=== PATIENT | female | born 1945 | race Caucasian/White ===

== ENCOUNTER 2022-10-15 10:40 | Inpatient (IN) ==
[2022-10-15 11:34] LABS: POC Calcium, Ionized 1.17 (1.16-1.32); POC Creatinine 3.1 (0.6-1.2); POC Potassium 4.3 (3.3-5.1)
[2022-10-15 12:27] LABS: Albumin 3.8 gm/dL (3.2-5.2); Calcium 9.2 mg/dL (8.6-10.4)
[2022-10-15] MEDS ORDERED: ENALAPRILAT 1.25 MG/ML VIAL IV ONE (13:12)
[2022-10-15] MEDS ORDERED: 0.9 % SODIUM CHLORIDE 1,000 ML IV ONE (13:12)
--- NOTE | 2022-10-15 14:22 | Emergency Department Note ---
HPI General Chief complaint: Blood Pressure Problem Stated complaint: High blood pressure Time Seen by Provider: 10/15/22 11:09 Source: patient Mode of arrival: ambulatory Limitations: no limitations History of Present Illness HPI Narrative: 76-year-old female with h/o non-obstructive CAD with NSTEMI in [place] while on vacation last year presents for elevated blood pressure and generalized fatigue that she states has been going on for about 2 months. During her admission for NSTEMI she had a heart cath that showed "no culprit stenosis, no high-grade atherosclerotic stenosis spasm or thrombus. She was noted to have 40 to 50% and 30 to 40% stenosis of the proximal to mid LAD. The LCx and RCA were free of st enosis." No stents were placed and she was medically managed with a higher dose statin, beta renay and aspirin. An echocardiogram showed diastolic dysfunction, no hemodynamically significant valvular disease, and an EF of 55- 60%. She was encouraged to come in today by family because she had a headache and noted her systolic blood pressure to be 180's. An EKG shows normal sinus rhythm with rate of 60 bpm, and no abnormal ST segment changes to suggest ischemia. Related Data Home Medications Medication Instructions Recorded Confirmed pediatric multivitamin no.76 1 tab PO QDAY 04/16/19 11/11/21 (Flintstones Complete chewable tablet) aspirin 81 mg tablet,delayed 81 mg PO QDAY 03/25/21 11/11/21 release (Adult Low Dose Aspirin) Previous Rx's Medication Instructions Recorded terbinafine HCl 1 % topical cream 1 applic topical QDAY #15 grams 08/14/21 (Antifungal (terbinafine)) atorvastatin 40 mg tablet 40 mg PO QDAY #90 tabs 07/14/22 metoprolol succinate 25 mg 25 mg PO QDAY #90 tabs 07/14/22 tablet,extended release 24 hr Allergies Allergy/AdvReac Type Severity Reaction Status Date / Time Sulfa (Sulfonamide Allergy Severe Generalized Verified 05/17/22 07:55 Antibiotics) Rash tamsulosin AdvReac Intermediate Other Verified 05/17/22 07:55 Review of Systems ROS ROS Narrative: Narrative: All systems ED: reviewed and negative except as stated. [facility] Narrative Patient History Narrative: Narrative: Medical/Surgical/Family History All Active Problems (Updated 10/15/22 @ 15:49 by Edith Martinez PA-C) ANAMARIA (acute kidney injury) (Acute) Chest pain, rule out acute myocardial infarction (Acute) Tinea corporis (Acute) History of non-ST elevation myocardial infarction (NSTEMI) (Acute) Medicare annual wellness visit, subsequent (Acute) Chest pain (Acute) CAD (coronary artery disease) (Chronic) Recurrent UTI (Acute) Low back pain (Acute) Rotator cuff tear, left (Chronic) Left carpal tunnel syndrome (Chronic) Left anterior shoulder pain (Acute) Weakness of left upper extremity (Chronic) Left upper arm pain (Chronic) Urine retention (Acute) Microhematuria (Chronic) Visual disturbance (Chronic) Osteoarthrosis, generalized, 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 Torres Degenerative arthritis Elevated ferritin Flank pain Flank pain Ganglion Left palm third flexor tendon Hyperlipidemia Hypersensitivity reaction (08/26/14) Joint effusion, knee (08/02/13) Knee pain LFT elevation Distant history Low back pain Medicare annual wellness visit, subsequent Oliguria Osteoarthritis of spine Osteoarthrosis, generalized, hand (01/25/13) Osteopenia Normal DEXA scan in 2018 Continue vitamin D supplement and weightbearing exercise Consider repeat DEXA in 2 to 3 years Sinusitis, acute Sprain (07/21/13) Left knee Sprain and strain (07/21/13) of ankle; other Left ankle foot sprain Urinary tract infection Vesicles (08/26/14) Redness and a few vesicles right forehead Visual disturbance Right Eye Surgical History History of cholecystectomy History of colonoscopy (04/18/18) 04/16/13 2 hyperplastic polyps. 04/18/18 normal. 7-year follow-up. Dr. Shields. History of knee surgery Left History of tubal ligation S/P skin biopsy 08/04/2009: Right Deltoid Lesion: Lichenoid actinic keratosis/ 07/06/2007: Right Upper Arm Lesion: Benign lichenoid keratosis with associated pigment incontinence, Pas stain negative for fungal organisms Status post total abdominal hysterectomy and bilateral salpingo-oophorectomy Family History Maternal Aunt Malignant neoplasm of breast Father Cerebrovascular accident (CVA) Unknown Essential hypertension Malignant Melanoma of Skin Daughter Hypothyroidism Mother , in MVA Motor vehicle accident Brother , 2 brothers , 1 in his 30's, other in his 50's Acute myocardial infarction Other Diabetes Heart attack Hypertension Social History Smoking Status: Never smoker Alcohol Intake Frequency: does not drink Substance Use: does not use Exam Narrative Narrative: General: AOx3, NAD, nontoxic appearing. Pleasant and conversant. HEENT: PERRL, EOMI, normocephalic. Moist mucous membranes. Normal facies and normal dentition. Chest: Symmetric, no pain to palpation Respiratory: Lungs clear to auscultation bilaterally. No respiratory distress. Unlabored breathing. Heart: Regular rate and rhythm, no murmurs/clicks/rubs. Abdomen: Non-tender, Non distended, normal bowel tones. No organomegaly. Extremities: Warm and well perfused. No edema. DP 2+ bilaterally. No venous stasis. Neuro: No focal deficits. Cranial nerves II-XII grossly normal. Skin: Warm dry, no rashes or lesions, no cyanosis. Psych: Normal mood and affect Heme/Lymph: No abnormal bruising General Limitations: no limitations Course Course Course Narrative: 76-year-old female with CAD presents for exertional symptoms and headache with poorly controlled hypertension Reevaluation(s) Reevaluation #1: Rule out chest pain, obtain EKG, serial troponin Obtain basic labs Reevaluation #2: Point of care chemistry with a creatinine of 3.1 and a BUN of 30, recheck renal panel--> creatinine is 2.5, last normal creatinine was 05/17/2022 at 1.0. POC trop 0.02 Reevaluation #3: Give 1 L IV fluids Heart score 6 Repeat trop Additional Reevaluation(s): Repeat Trop is negative Consultations Consultation #1: Dr. Chapman, Cardiology at [facility] was contacted and he felt the patients ANAMARIA needed to be worked up first before provocative testing to r/o chest pain. He also felt the patient was likely ok for rapid f/u with cardiology as outpatient. Vital Signs Vital signs: Vital Signs Temperature 96.3 F L 10/15/22 10:41 Pulse Rate 71 10/15/22 10:41 Respiratory Rate 18 10/15/22 10:41 Blood Pressure 186/88 10/15/22 10:41 Pulse Oximetry (%) 97 10/15/22 10:41 Oxygen Delivery Method Room Air 10/15/22 10:41 Temperature 96.3 F L 10/15/22 10:41 Pulse Rate 54 L 10/15/22 15:07 Respiratory Rate 16 10/15/22 14:35 Blood Pressure 176/65 10/15/22 15:07 Pulse Oximetry (%) 97 10/15/22 15:07 Oxygen Delivery Method Room Air 10/15/22 14:35 MDM MDM Narrative Medical decision making narrative: Acute kidney injury Chest pain rule out Patient has been ruled out for acute myocardial infarction with 2 negative serial troponins and a normal EKG. I spoke with Dr. Avalos, hospitalist, for admission for her ANAMARIA. He would like me to obtain a chest x-ray and a BNP to rule out CHF as cause of her decreased kidney function. He has agreed to admission. Lab Data 10/15/22 11:07 Labs: Lab Results 10/15/22 10/15/22 10/15/22 Range/Units 11:07 11:18 11:31 POC Hct 30.0 L (36-48) POC Sodium 141 (133-145) Sodium 140 (133-145) mmol/L POC Potassium 4.3 (3.3-5.1) Potassium 4.3 (3.3-5.1) mmol/L POC Chloride 107 (96-108) Chloride 108 (96-108) mmol/L Carbon Dioxide 22 (22-30) mmol/L POC Total CO2 22.0 (22-30) Anion Gap 10.0 (8.0-16.0) POC BUN 30 H (6-20) BUN 30 H (8-23) mg/dL Creatinine 2.5 H (0.6-1.1) mg/dL POC Creatinine 3.1 H (0.6-1.2) GFR Calculation 18 Glucose 96 (70-105) mg/dL POC Glucose 101 (70-105) Calcium 9.2 (8.6-10.4) mg/dL POC WB Ioniz Calcium 1.17 (1.16-1.32) Phosphorus 4.0 (2.5-4.5) mg/dL Albumin 3.8 (3.2-5.2) gm/dL POC Troponin I < 0.02 (0.00-0.08) 10/15/22 Range/Units 14:23 POC Hct (36-48) POC Sodium (133-145) Sodium (133-145) mmol/L POC Potassium (3.3-5.1) Potassium (3.3-5.1) mmol/L POC Chloride (96-108) Chloride (96-108) mmol/L Carbon Dioxide (22-30) mmol/L POC Total CO2 (22-30) Anion Gap (8.0-16.0) POC BUN (6-20) BUN (8-23) mg/dL Creatinine (0.6-1.1) mg/dL POC Creatinine (0.6-1.2) GFR Calculation Glucose (70-105) mg/dL POC Glucose (70-105) Calcium (8.6-10.4) mg/dL POC WB Ioniz Calcium (1.16-1.32) Phosphorus (2.5-4.5) mg/dL Albumin (3.2-5.2) gm/dL POC Troponin I < 0.02 (0.00-0.08) Discharge Plan Patient/Caregiver Discharge Instructions Pt seen by LINE INSTALLATION SUPERVISOR/PA only: Yes Clinical Impression: ANAMARIA (acute kidney injury), Chest pain, rule out acute myocardial infarction Patient Disposition: Xfer As Inpt ([facility]) Condition: Good Follow up with: Cb Pollack DO [Primary Care Provider] - Prescriptions: No Action metoprolol succinate 25 mg tablet extended release 24 hr 25 mg PO QDAY Qty: 90 3RF atorvastatin 40 mg tablet 40 mg PO QDAY Qty: 90 3RF Flintstones Complete tablet,chewable 1 tab PO QDAY aspirin [Adult Low Dose Aspirin] 81 mg tablet,delayed release (DR/EC) 81 mg PO QDAY terbinafine HCl [Antifungal (terbinafine)] 1 % cream 1 applic topical QDAY Qty: 15 0RF Rx Instructions: Apply to umbilicus once daily for 1 to 4 weeks.
--- NOTE | 2022-10-15 15:14 | Internal Med History&Physical ---
HPI History of Present Illness Patient information: Note initiated : 10/15/22 at 3:12 pm Service Date, if different from initiated Date: [] Patient: Caro Jason 76 y/o F admitted on for High blood pressure. Chief Complaint: [] History of present illness: Ms. Jason is a 76 year old Female with a history of coronary artery disease diagnosed in 2020 when the patient had an NSTEMI. At that time, the patient had an angiogram which showed nonobstructing atherosclerosis of 40 to 50% and 30 to 40% in the proximal LAD with an associated IFR of 0.94. The patient was not deemed to be a candidate for PCI by interventional cardiology, cardiology recommended medical management and the patient was started on aspirin, a beta- renay and atorvastatin. The patient now presents to the emergency department for progressively worsening weakness and what she describes as "heaviness". The patient does describe exertional chest discomfort however says that has been present since 2020 and stable. The patient says that she has been having diff iculty performing activities of daily living, she describes having to rest multiple times while doing house chores. The patient went to her dentist where she was found to have a right lower molar infection, she says it is an abscess that her dentist feels will require a root canal. While at her dentist, the patient did have her blood pressure checked and it was markedly elevated. The patient then went home and purchased a blood pressure monitor and her blood pressure continued to be elevated at home. At that time she did decide to come to the emergency department for further evaluation. In the emergency department, the patient was noted to have elevated blood pressure heart rate in the 50s to 60s and otherwise stable vitals. EKG did not show any ischemic changes, troponin was normal x2. A renal function panel showed a creatinine level of 2.5, significantly higher than the patient's last creatinine level of 1.0. Hospital medicine was asked to admit the patient for further evaluation. Upon [id number] ultrasound examination, patient was noted to have a distended urine filled bladder and bilateral moderate to severe hydronephrosis. Review of systems Constitutional: no fever, positive for fatigue Eyes: no vision changes or pain Cardiovascular: Positive for exertional chest discomfort, no palpitations Respiratory: no cough or dyspnea Gastrointestinal: no abdominal pain, no nausea, vomiting, or diarrhea Genitourinary: Positive for urine incontinence. Musculoskeletal: no arthralgia or myalgia Integumentary: no skin lesion or wound Neurological: no focal weakness or numbness Psychiatric: no anxiety or depression Physical exam Head: Atraumatic, normal inspection. Eyes: normal appearance, no scleral icterus. Neck: full ROM Respiratory: no respiratory distress. Cardiovascular: normal rate and rhythm, S1, S2. GI/Abdominal: soft, nontender, no guarding. Extremities: full range of motion, nontender. Neurological: CN II-XII intact, intact motor, intact sensation. Psychiatric: normal mood. Skin: warm, normal color PFSH PFSH All Active Problems (Updated 10/15/22 @ 15:49 by Edith Martinez PA-C) ANAMARIA (acute kidney injury) (Acute) Chest pain, rule out acute myocardial infarction (Acute) Tinea corporis (Acute) History of non-ST elevation myocardial infarction (NSTEMI) (Acute) Medicare annual wellness visit, subsequent (Acute) Chest pain (Acute) CAD (coronary artery disease) (Chronic) Recurrent UTI (Acute) Low back pain (Acute) Rotator cuff tear, left (Chronic) Left carpal tunnel syndrome (Chronic) Left anterior shoulder pain (Acute) Weakness of left upper extremity (Chronic) Left upper arm pain (Chronic) Urine retention (Acute) Microhematuria (Chronic) Visual disturbance (Chronic) Osteoarthrosis, generalized, 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 Torres Degenerative arthritis Elevated ferritin Flank pain Flank pain Ganglion Left palm third flexor tendon Hyperlipidemia Hypersensitivity reaction (08/26/14) Joint effusion, knee (08/02/13) Knee pain LFT elevation Distant history Low back pain Medicare annual wellness visit, subsequent Oliguria Osteoarthritis of spine Osteoarthrosis, generalized, hand (01/25/13) Osteopenia Normal DEXA scan in 2018 Continue vitamin D supplement and weightbearing exercise Consider repeat DEXA in 2 to 3 years Sinusitis, acute Sprain (07/21/13) Left knee Sprain and strain (07/21/13) of ankle; other Left ankle foot sprain Urinary tract infection Vesicles (08/26/14) Redness and a few vesicles right forehead Visual disturbance Right Eye Surgical History History of cholecystectomy History of colonoscopy (04/18/18) 04/16/13 2 hyperplastic polyps. 04/18/18 normal. 7-year follow-up. Dr. Shields. History of knee surgery Left History of tubal ligation S/P skin biopsy 08/04/2009: Right Deltoid Lesion: Lichenoid actinic keratosis/ 07/06/2007: Right Upper Arm Lesion: Benign lichenoid keratosis with associated pigment incontinence, Pas stain negative for fungal organisms Status post total abdominal hysterectomy and bilateral salpingo-oophorectomy Family History Maternal Aunt Malignant neoplasm of breast Father Cerebrovascular accident (CVA) Unknown Essential hypertension Malignant Melanoma of Skin Daughter Hypothyroidism Mother , in MVA Motor vehicle accident Brother , 2 brothers , 1 in his 30's, other in his 50's Acute myocardial infarction Other Diabetes Heart attack Hypertension Social History household members: alone marital status: other: 2 children smoking status: Never smoker alcohol intake frequency: does not drink substance use type: does not use MEDS/ALLERGIES Home Medications and Allergies Home Medications Medication Instructions Recorded Confirmed Type pediatric multivitamin no.76 1 tab PO QDAY 04/16/19 11/11/21 History (Flintstones Complete chewable tablet) aspirin 81 mg tablet,delayed 81 mg PO QDAY 03/25/21 11/11/21 History release (Adult Low Dose Aspirin) terbinafine HCl 1 % topical cream 1 applic topical QDAY #15 grams 08/14/21 11/11/21 Rx (Antifungal (terbinafine)) atorvastatin 40 mg tablet 40 mg PO QDAY #90 tabs 07/14/22 Rx metoprolol succinate 25 mg 25 mg PO QDAY #90 tabs 07/14/22 Rx tablet,extended release 24 hr Allergies Allergy/AdvReac Type Severity Reaction Status Date / Time Sulfa (Sulfonamide Allergy Severe Generalized Verified 05/17/22 07:55 Antibiotics) Rash tamsulosin AdvReac Intermediate Other Verified 05/17/22 07:55 EXAM Constitutional Vitals: Temp Pulse Resp BP Pulse Ox O2 Del Method 96.3 F L 54 L 16 176/65 97 Room Air 10/15/22 10:41 10/15/22 15:07 10/15/22 14:35 10/15/22 15:07 10/15/22 15:07 10/15/22 14:35 DATA Data Completed and Pending Labs: Labs from last 24 hours 10/15/22 10/15/22 10/15/22 14:23 14:23 11:31 POC Hct 30.0 L POC Sodium 141 Sodium POC Potassium 4.3 Potassium POC Chloride 107 Chloride Carbon Dioxide POC Total CO2 22.0 Anion Gap POC BUN 30 H BUN Creatinine POC Creatinine 3.1 H GFR Calculation Glucose POC Glucose 101 Calcium POC WB Ioniz Calcium 1.17 Phosphorus NT-Pro-B Natriuret Pep Pending Albumin POC Troponin I < 0.02 10/15/22 10/15/22 11:18 11:07 POC Hct POC Sodium Sodium 140 POC Potassium Potassium 4.3 POC Chloride Chloride 108 Carbon Dioxide 22 POC Total CO2 Anion Gap 10.0 POC BUN BUN 30 H Creatinine 2.5 H POC Creatinine GFR Calculation 18 Glucose 96 POC Glucose Calcium 9.2 POC WB Ioniz Calcium Phosphorus 4.0 NT-Pro-B Natriuret Pep Albumin 3.8 POC Troponin I < 0.02 A/P Narrative A/P Narrative: Assessment: 76 year old female with a history of nonobstructive CAD admitted for acute kidney injury after presenting to the ED for hypertension and several months of progressively worsening generalized weakness and fatigue. Initial physical examination and [id number] ultrasound examination are suggest a bladder outlet obstruction resulting in bilateral hydronephrosis as the most likely cause of the patient's renal failure. #Renal failure probably secondary to obstructive nephropathy #Hypertensive urgency probably secondary to renal failure #Generalized weakness and fatigue #History of CAD with stable angina Plan -CT abdomen pelvis without contrast for further evaluation of probable bladder outlet obstruction. -Bladder scan for postvoid residual. -If CT scan is concerning for a bladder outlet obstruction, consult urology. -Additional work-up includes urinalysis for ANAMARIA work-up, chest xray PA and lateral, transthoracic echocardiogram to evaluate cardiac function, BNP, CBC, LFTs, iron studies, TSH, CRP, UDS. -Start Norvasc 5 mg daily, prn IV hydralazine for hypertension. -personnel monitor. -Home medications reconciliation, continue important medications, hold potentially nephrotoxic medications. -Regular diet. -Consider nephrology consult. -DVT ppx: Heparin SQ. Time Spent With Patient Time: Total time spent is greater than 50% in coordination of care (as documented) at patient's floor/unit and/or counseling patient:
[2022-10-15] MEDS ORDERED: amLODIPine 5 MG TABLET PO SCH (16:19)
[2022-10-15] MEDS ORDERED: ACETAMINOPHEN 325 MG TABLET PO PRN (16:19)
[2022-10-15] MEDS ORDERED: ONDANSETRON 4 MG/2 ML VIAL IV PRN (16:19)
[2022-10-15] MEDS ORDERED: 0.9 % SODIUM CHLORIDE 1,000 ML IV SCH (16:19)
[2022-10-15] MEDS ORDERED: hydrALAZINE 20 MG/ML VIAL IV PRN (16:19)
[2022-10-15 16:38] LABS: Appearance,Urine CLEAR (Clear); Bilirubin,Urine Negative (Negative); Color,Urine STRAW; Culture Indicated,Urine No; Glucose,Urine (UA) Negative (Negative); Ketones,Urine Negative (Negative); Leukocyte Esterase,Urine Negative /uL (Negative); Mucus,Urine FEW /hpf; Nitrate,Urine Negative (Negative); Protein,Urine Negative (Negative); Specific Gravity,Urine 1.005 (1.000-1.035); Urine Blood Negative (Negative); Urine RBC 1 /hpf (0-3); Urine Squamous Epithelial Cell 1 /hpf (0-4); Urine Transitional Epi Cells < 1 /hpf (0-2); Urine WBC < 1 /hpf (0-4); Urobilinogen,Urine Negative
--- NOTE | 2022-10-15 16:43 | Internal Med History&Physical ---
HPI History of Present Illness Patient information: Note initiated : 10/15/22 at 4:43 pm Service Date, if different from initiated Date: [] Patient: Caro Jason 76 y/o F admitted on 10/15/22 for High blood pressure. Chief Complaint: [] History of present illness: Ms. Jason is a 76 year old F [facility] PF[facility] All Active Problems (Updated 10/15/22 @ 15:49 by Edith Martinez PA-C) ANAMARIA (acute kidney injury) (Acute) Chest pain, rule out acute myocardial infarction (Acute) Tinea corporis (Acute) History of non-ST elevation myocardial infarction (NSTEMI) (Acute) Medicare annual wellness visit, subsequent (Acute) Chest pain (Acute) CAD (coronary artery disease) (Chronic) Recurrent UTI (Acute) Low back pain (Acute) Rotator cuff tear, left (Chronic) Left carpal tunnel syndrome (Chronic) Left anterior shoulder pain (Acute) Weakness of left upper extremity (Chronic) Left upper arm pain (Chronic) Urine retention (Acute) Microhematuria (Chronic) Visual disturbance (Chronic) Osteoarthrosis, generalized, 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 Torres Degenerative arthritis Elevated ferritin Flank pain Flank pain Ganglion Left palm third flexor tendon Hyperlipidemia Hypersensitivity reaction (08/26/14) Joint effusion, knee (08/02/13) Knee pain LFT elevation Distant history Low back pain Medicare annual wellness visit, subsequent Oliguria Osteoarthritis of spine Osteoarthrosis, generalized, hand (01/25/13) Osteopenia Normal DEXA scan in 2018 Continue vitamin D supplement and weightbearing exercise Consider repeat DEXA in 2 to 3 years Sinusitis, acute Sprain (07/21/13) Left knee Sprain and strain (07/21/13) of ankle; other Left ankle foot sprain Urinary tract infection Vesicles (08/26/14) Redness and a few vesicles right forehead Visual disturbance Right Eye Surgical History History of cholecystectomy History of colonoscopy (04/18/18) 04/16/13 2 hyperplastic polyps. 04/18/18 normal. 7-year follow-up. Dr. Shields. History of knee surgery Left History of tubal ligation S/P skin biopsy 08/04/2009: Right Deltoid Lesion: Lichenoid actinic keratosis/ 07/06/2007: Right Upper Arm Lesion: Benign lichenoid keratosis with associated pigment incontinence, Pas stain negative for fungal organisms Status post total abdominal hysterectomy and bilateral salpingo-oophorectomy Family History Maternal Aunt Malignant neoplasm of breast Father Cerebrovascular accident (CVA) Unknown Essential hypertension Malignant Melanoma of Skin Daughter Hypothyroidism Mother , in MVA Motor vehicle accident Brother , 2 brothers , 1 in his 30's, other in his 50's Acute myocardial infarction Other Diabetes Heart attack Hypertension Social History household members: alone marital status: other: 2 children smoking status: Never smoker alcohol intake frequency: does not drink substance use type: does not use MEDS/ALLERGIES Home Medications and Allergies Home Medications Medication Instructions Recorded Confirmed Type pediatric multivitamin no.76 1 tab PO QDAY 04/16/19 11/11/21 History (Flintstones Complete chewable tablet) aspirin 81 mg tablet,delayed 81 mg PO QDAY 03/25/21 11/11/21 History release (Adult Low Dose Aspirin) terbinafine HCl 1 % topical cream 1 applic topical QDAY #15 grams 08/14/21 Rx (Antifungal (terbinafine)) atorvastatin 40 mg tablet 40 mg PO QDAY #90 tabs 07/14/22 Rx metoprolol succinate 25 mg 25 mg PO QDAY #90 tabs 07/14/22 Rx tablet,extended release 24 hr Allergies Allergy/AdvReac Type Severity Reaction Status Date / Time Sulfa (Sulfonamide Allergy Severe Generalized Verified 05/17/22 07:55 Antibiotics) Rash tamsulosin AdvReac Intermediate Other Verified 05/17/22 07:55 EXAM Constitutional Vitals: Temp Pulse Resp BP Pulse Ox O2 Del Method 97.3 F 61 16 178/68 99 Room Air 10/15/22 16:16 10/15/22 16:16 10/15/22 16:16 10/15/22 16:16 10/15/22 16:16 10/15/22 16:16 DATA Data Completed and Pending Labs: Labs from last 24 hours 10/15/22 10/15/22 10/15/22 15:56 15:56 14:24 POC Hct POC Sodium Sodium Pending POC Potassium Potassium Pending POC Chloride Chloride Pending Carbon Dioxide Pending POC Total CO2 Anion Gap Pending POC BUN BUN Pending Creatinine Pending POC Creatinine GFR Calculation Pending Glucose Pending POC Glucose Uric Acid Pending Calcium Pending POC WB Ioniz Calcium Phosphorus Pending Magnesium Pending Iron Pending TIBC Pending Unsat Iron Binding Pending Transferrin % Sat Pending Ferritin Pending Total Bilirubin Pending Direct Bilirubin Pending GGT Pending AST Pending ALT Pending Alkaline Phosphatase Pending Lactate Dehydrogenase Pending C-Reactive Protein Pending NT-Pro-B Natriuret Pep Total Protein Pending Albumin Pending Globulin Pending Albumin/Globulin Ratio Pending Triglycerides Pending TSH Pending Urine Color Straw Urine Appearance Clear Urine pH 5.0 Ur Specific [place] 1.005 Urine Protein Negative Urine Glucose (UA) Negative Urine Ketones Negative Urine Occult Blood Negative Urine Nitrate Negative Urine Bilirubin Negative Urine Urobilinogen Negative Ur Leukocyte Esterase Negative Urine RBC 1 Urine WBC < 1 Ur Squamous Epith Cells 1 Ur Transition Epith Cell < 1 Urine Bacteria None Urine Mucus Few A Ur Culture Indicated? No Urine Opiates Screen Pending Ur Opiates Confirm Pending Ur Oxycodone Screen Pending U Oxycod/Oxymor Confirm Pending Urine Methadone Screen Pending Ur Methadone Confirm Pending Ur Barbiturates Screen Pending Ur Barbiturate Confirm Pending Ur Phencyclidine Scrn Pending Urine PCP Confirm Pending Ur Amphetamines Screen Pending U Amphetamines Confirm Pending U Benzodiazepines Scrn Pending Ur Benzodiazepine, Qnt Pending Urine Cocaine Screen Pending Urine Cocaine Confirm Pending U Cannabinoids Confirm Pending U Marijuana (THC) Screen Pending POC Troponin I 10/15/22 10/15/22 10/15/22 14:23 14:23 11:31 POC Hct 30.0 L POC Sodium 141 Sodium POC Potassium 4.3 Potassium POC Chloride 107 Chloride Carbon Dioxide POC Total CO2 22.0 Anion Gap POC BUN 30 H BUN Creatinine POC Creatinine 3.1 H GFR Calculation Glucose POC Glucose 101 Uric Acid Calcium POC WB Ioniz Calcium 1.17 Phosphorus Magnesium Iron TIBC Unsat Iron Binding Transferrin % Sat Ferritin Total Bilirubin Direct Bilirubin GGT AST ALT Alkaline Phosphatase Lactate Dehydrogenase C-Reactive Protein NT-Pro-B Natriuret Pep 691.9 H Total Protein Albumin Globulin Albumin/Globulin Ratio Triglycerides TSH Urine Color Urine Appearance Urine pH Ur Specific [place] Urine Protein Urine Glucose (UA) Urine Ketones Urine Occult Blood Urine Nitrate Urine Bilirubin Urine Urobilinogen Ur Leukocyte Esterase Urine RBC Urine WBC Ur Squamous Epith Cells Ur Transition Epith Cell Urine Bacteria Urine Mucus Ur Culture Indicated? Urine Opiates Screen Ur Opiates Confirm Ur Oxycodone Screen U Oxycod/Oxymor Confirm Urine Methadone Screen Ur Methadone Confirm Ur Barbiturates Screen Ur Barbiturate Confirm Ur Phencyclidine Scrn Urine PCP Confirm Ur Amphetamines Screen U Amphetamines Confirm U Benzodiazepines Scrn Ur Benzodiazepine, Qnt Urine Cocaine Screen Urine Cocaine Confirm U Cannabinoids Confirm U Marijuana (THC) Screen POC Troponin I < 0.02 10/15/22 10/15/22 11:18 11:07 POC Hct POC Sodium Sodium 140 POC Potassium Potassium 4.3 POC Chloride Chloride 108 Carbon Dioxide 22 POC Total CO2 Anion Gap 10.0 POC BUN BUN 30 H Creatinine 2.5 H POC Creatinine GFR Calculation 18 Glucose 96 POC Glucose Uric Acid Calcium 9.2 POC WB Ioniz Calcium Phosphorus 4.0 Magnesium Iron TIBC Unsat Iron Binding Transferrin % Sat Ferritin Total Bilirubin Direct Bilirubin GGT AST ALT Alkaline Phosphatase Lactate Dehydrogenase C-Reactive Protein NT-Pro-B Natriuret Pep Total Protein Albumin 3.8 Globulin Albumin/Globulin Ratio Triglycerides TSH Urine Color Urine Appearance Urine pH Ur Specific [place] Urine Protein Urine Glucose (UA) Urine Ketones Urine Occult Blood Urine Nitrate Urine Bilirubin Urine Urobilinogen Ur Leukocyte Esterase Urine RBC Urine WBC Ur Squamous Epith Cells Ur Transition Epith Cell Urine Bacteria Urine Mucus Ur Culture Indicated? Urine Opiates Screen Ur Opiates Confirm Ur Oxycodone Screen U Oxycod/Oxymor Confirm Urine Methadone Screen Ur Methadone Confirm Ur Barbiturates Screen Ur Barbiturate Confirm Ur Phencyclidine Scrn Urine PCP Confirm Ur Amphetamines Screen U Amphetamines Confirm U Benzodiazepines Scrn Ur Benzodiazepine, Qnt Urine Cocaine Screen Urine Cocaine Confirm U Cannabinoids Confirm U Marijuana (THC) Screen POC Troponin I < 0.02 A/P Time Spent With Patient Time: Total time spent is greater than 50% in coordination of care (as documented) at patient's floor/unit and/or counseling patient:
[2022-10-15 16:49] LABS: Amphetamine Screen,Urine None detected; Barbiturate Screen,Urine None detected; Benzodiazepines Screen,Urine None detected; Cannabinoid Screen,Urine None detected; Cocaine Screen,Urine None detected; Opiate Screen,Urine None detected; Oxycodone, Urine Screen None detected; Phencyclidine Screen,Urine None detected
[2022-10-15 16:51] LABS: Ferritin 456.7 ng/mL (30.0-400.0)
[2022-10-15 16:53] LABS: ALT/SGPT 21 U/L (<40); AST/SGOT 26 U/L (<32); Albumin 3.7 gm/dL (3.2-5.2); Albumin/Globulin Ratio 1.2 (1.0-2.3); Alkaline Phosphatase 101 U/L (39-117); Bilirubin,Direct < 0.2 mg/dL (0-0.3); Bilirubin,Total 0.3 mg/dL (0.1-1.0); Blood Urea Nitrogen 28 mg/dL (8-23); C-Reactive Protein < 0.30 mg/dL (0.03-0.80); Calcium 8.7 mg/dL (8.6-10.4); Carbon Dioxide 18 mmol/L (22-30); Chloride 105 mmol/L (96-108); Globulin 3.2 gm/dL (2.2-3.7); Glomerular Filtration Rate 18; Glucose 75 mg/dL (70-105); Iron 52 ug/dL (37-145); Lactate Dehydrogenase 251 U/L (135-225); Phosphorous 4.4 mg/dL (2.5-4.5); TIBC Calculation 258 ug/dl (228-428); Transferrin % Saturation 20 % (15-50); Triglycerides 86 mg/dL (<150); Uric Acid 5.2 mg/dL (2.5-8.0)
[2022-10-15 16:54] LABS: Thyroid Stimulating Hormone 3.92 uIU/mL (0.27-5.01)
--- NOTE | 2022-10-15 17:25 | Cat Scan Report ---
History: Urinary tract obstruction TECHNIQUE: The abdomen was imaged without contrast in axial plane at 2.5 mm intervals from above the diaphragm through the symphysis pubis. Sagittal and coronal reformats were created. The radiation exposure was limited using dose reduction technology. FINDINGS:6 there is mild parenchymal scarring in the inferior segment lingula and right middle lobe. No pleural effusion is present. Evaluation the abdominal organs without contrast is somewhat limited. The liver and spleen are normal in size and homogeneous. There is a surgical clip along the posterior border of the right lobe of the liver, adjacent to the diaphragm. This may have migrated from a prior surgical procedure. There is no surrounding inflammation. The gallbladder is been removed. The bile ducts are normal caliber. No abnormality is detected in the pancreas. The adrenals are normal and symmetric. There is severe bilateral hydronephrosis. No kidney stone is present. Both ureters are abnormally dilated. Urinary bladder is very over distended. The wall is smooth and there is no apparent bladder mass. There are no stones within the bladder. Uterus and ovaries have been removed. No pelvic mass or pelvic floor lesion are identified to causing bladder outlet obstruction. The bowel pattern is normal. There is a moderate amount stool in the large intestine but no evidence of bowel obstruction. No ascites or adenopathy are present. Moderate amount of calcified plaque is present in the distal aorta and iliac arteries. Bone windows reveal mild arthritis in the facets of the L4-5 and L5-S1 levels and in the right sacroiliac joint. IMPRESSION: Bladder outlet obstruction of undetermined etiology. This is causing severe bilateral hydronephrosis. Dr. Avalos was called with the report Interpreted and Authenticated by: Mauro Beck 10/15/22
--- NOTE | 2022-10-15 17:31 | Urology Consult Note ---
HPI Date of Consult Consult Date: 10/15/22 Requesting physician: Casey Avalos Primary Care Provider: Cb Pollack DO Consult Narrative Chief complaint: Acute renal failure secondary to bladder outlet obstruction Reason for consult: Acute renal failure secondary to bladder outlet obstruction History of present illness: Caro is a 76-year-old woman who presented to our emergency department today due to hypertension and a headache. There was worried that the patient might be having a cardiac event as she has a history of nonobstructive coronary artery disease with an NSTEMI last year. On work-up her serum creatinine was found to be 3.1. On May 17, 2022 her serum creatinine was 1. Noncontrast CT scan of the abdomen and pelvis was obtained. I personally reviewed the films that showed massive bladder distention with bilateral hydronephrosis and ureterectasis to the level of the bladder. There are no stones on the imaging. There is significant tortuosity of the ureters bilaterally. The patient was previously followed by my office. She last saw Priscilla Fong on July 04, 2017 so she is not currently a patient. It appears that she has a history of incomplete emptying of bladder with prior postvoid residuals under 2 00 cc. She was doing double voiding. She also apparently had a history of microscopic hematuria associated with pyuria. She was using topical estrogen cream. Postvoid residual at her last visit on July 04, 2017 was 190 cc. There was no blood in her urine at that last visit. Urology consultation was requested. She reports that over the last few months she has had more urine leakage. She has not had any pain or infection. She has noted becoming more and more fatigued. After admission a Panda catheter was placed and 1800 mL of urine were drained. This morning she reports that she feels fine. 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) Visual disturbance (Chronic) Microhematuria (Chronic) Urine retention (Acute) Left upper arm pain (Chronic) Weakness of left upper extremity (Chronic) Left anterior shoulder pain (Acute) Left carpal tunnel syndrome (Chronic) Rotator cuff tear, left (Chronic) Low back pain (Acute) Recurrent UTI (Acute) CAD (coronary artery disease) (Chronic) Chest pain (Acute) Medicare annual wellness visit, subsequent (Acute) History of non-ST elevation myocardial infarction (NSTEMI) (Acute) Tinea corporis (Acute) ANAMARIA (acute kidney injury) (Acute) Chest pain, rule out acute myocardial infarction (Acute) Medical History Actinic keratosis 2011 Right forehead Acute pharyngitis Acute sinusitis Allergic reaction Anosmia Back pain 2006 Right Bronchitis Chondromalacia of patella [address] Torres Degenerative arthritis Elevated ferritin Flank pain Flank pain Ganglion Left palm third flexor tendon Hyperlipidemia Hypersensitivity reaction (08/26/14) Joint effusion, knee (08/02/13) Knee pain LFT elevation Distant history Low back pain Medicare annual wellness visit, subsequent Oliguria Osteoarthritis of spine Osteoarthrosis, generalized, hand (01/25/13) Osteopenia Normal DEXA scan in 2018 Continue vitamin D supplement and weightbearing exercise Consider repeat DEXA in 2 to 3 years Sinusitis, acute Sprain (07/21/13) Left knee Sprain and strain (07/21/13) of ankle; other Left ankle foot sprain Urinary tract infection Vesicles (08/26/14) Redness and a few vesicles right forehead Visual disturbance Right Eye Surgical History History of cholecystectomy History of colonoscopy (04/18/18) 04/16/13 2 hyperplastic polyps. 04/18/18 normal. 7-year follow-up. Dr. Shields. History of knee surgery Left History of tubal ligation S/P skin biopsy 08/04/2009: Right Deltoid Lesion: Lichenoid actinic keratosis/ 07/06/2007: Right Upper Arm Lesion: Benign lichenoid keratosis with associated pigment incontinence, Pas stain negative for fungal organisms Status post total abdominal hysterectomy and bilateral salpingo-oophorectomy Family History Maternal Aunt Malignant neoplasm of breast Father Cerebrovascular accident (CVA) Unknown Essential hypertension Malignant Melanoma of Skin Daughter Hypothyroidism Mother , in MVA Motor vehicle accident Brother , 2 brothers , 1 in his 30's, other in his 50's Acute myocardial infarction Other Diabetes Heart attack Hypertension Social History household members: alone marital status: other: 2 children smoking status: Never smoker alcohol intake frequency: does not drink substance use type: does not use MEDS/ALLERGIES Home Medications and Allergies Home Medications Medication Instructions Recorded Confirmed Type aspirin 81 mg tablet,delayed 81 mg PO QDAY 03/25/21 10/15/22 History release (Adult Low Dose Aspirin) atorvastatin 40 mg tablet 40 mg PO QDAY #90 tabs 07/14/22 10/15/22 Rx metoprolol succinate 25 mg 25 mg PO QDAY #90 tabs 07/14/22 10/15/22 Rx tablet,extended release 24 hr Allergies Allergy/AdvReac Type Severity Reaction Status Date / Time Sulfa (Sulfonamide Allergy Severe Generalized Verified 05/17/22 07:55 Antibiotics) Rash tamsulosin AdvReac Intermediate Other Verified 05/17/22 07:55 Physical Examination Vital Signs Vital signs: Temp Pulse Resp BP Pulse Ox O2 Del Method 97.3 F 61 16 178/68 99 Room Air 10/15/22 16:16 10/15/22 16:16 10/15/22 16:16 10/15/22 16:16 10/15/22 16:16 10/15/22 16:16 General physical appearance General physical exam: well developed, well nourished, no distress and no pain ENT ENT exam: no hearing loss Head Head exam IM: Present atraumatic, normal inspection and normocephalic Neck Neck exam: trachea midline Cardiovascular Cardiovascular exam IM: Present normal rate and rhythm Respiratory Respiratory exam: normal respiratory effort and clear to auscultation Abdomen Abdomen: Present soft and non tender Genitourinary Genitourinary (Female): Present other (Panda catheter in place) Psychiatric Psychiatric: Present oriented to time, oriented to person, oriented to place and speech is normal Results Labs 10/16/22 05:00 Labs: Abnormal lab results 10/15/22 10/15/22 10/15/22 Range/Units 11:07 11:31 14:23 POC Hct 30.0 L (36-48) Carbon Dioxide (22-30) mmol/L POC BUN 30 H (6-20) BUN 30 H (8-23) mg/dL Creatinine 2.5 H (0.6-1.1) mg/dL POC Creatinine 3.1 H (0.6-1.2) Ferritin (30.0-400.0) ng/mL Lactate Dehydrogenase (135-225) U/L NT-Pro-B Natriuret Pep 691.9 H (<450.0) pg/mL Urine Mucus (None) /hpf 10/15/22 10/15/22 Range/Units 14:24 15:56 POC Hct (36-48) Carbon Dioxide 18 L (22-30) mmol/L POC BUN (6-20) BUN 28 H (8-23) mg/dL Creatinine 2.5 H (0.6-1.1) mg/dL POC Creatinine (0.6-1.2) Ferritin 456.7 H (30.0-400.0) ng/mL Lactate Dehydrogenase 251 H (135-225) U/L NT-Pro-B Natriuret Pep (<450.0) pg/mL Urine Mucus Few A (None) /[facility] Diabetes panel 10/15/22 10/15/22 Range/Units 11:07 14:24 Sodium 140 136 (133-145) mmol/L Potassium 4.3 4.4 (3.3-5.1) mmol/L Chloride 108 105 (96-108) mmol/L Carbon Dioxide 22 18 L (22-30) mmol/L BUN 30 H 28 H (8-23) mg/dL Creatinine 2.5 H 2.5 H (0.6-1.1) mg/dL Glucose 96 75 (70-105) mg/dL Calcium 9.2 8.7 (8.6-10.4) mg/dL AST 26 (<32) U/L ALT 21 (<40) U/L Alkaline Phosphatase 101 (39-117) U/L Total Protein 6.9 (5.9-8.4) gm/dL Albumin 3.8 3.7 (3.2-5.2) gm/dL Triglycerides 86 (<150) mg/dL Thyroid panel 10/15/22 Range/Units 14:24 TSH 3.92 (0.27-5.01) uIU/mL Calcium panel 10/15/22 10/15/22 Range/Units 11: 14:24 Calcium 9.2 8.7 (8.6-10.4) mg/dL Phosphorus 4.0 4.4 (2.5-4.5) mg/dL Albumin 3.8 3.7 (3.2-5.2) gm/dL Pituitary panel 10/15/22 10/15/22 Range/Units 11:07 14:24 Sodium 140 136 (133-145) mmol/L Potassium 4.3 4.4 (3.3-5.1) mmol/L Chloride 108 105 (96-108) mmol/L Carbon Dioxide 22 18 L (22-30) mmol/L BUN 30 H 28 H (8-23) mg/dL Creatinine 2.5 H 2.5 H (0.6-1.1) mg/dL Glucose 96 75 (70-105) mg/dL Calcium 9.2 8.7 (8.6-10.4) mg/dL TSH 3.92 (0.27-5.01) uIU/mL Adrenal panel 10/15/22 10/15/22 Range/Units 11:07 14:24 Sodium 140 136 (133-145) mmol/L Potassium 4.3 4.4 (3.3-5.1) mmol/L Chloride 108 105 (96-108) mmol/L Carbon Dioxide 22 18 L (22-30) mmol/L BUN 30 H 28 H (8-23) mg/dL Creatinine 2.5 H 2.5 H (0.6-1.1) mg/dL Glucose 96 75 (70-105) mg/dL Calcium 9.2 8.7 (8.6-10.4) mg/dL Total Bilirubin 0.3 (0.1-1.0) mg/dL AST 26 (<32) U/L ALT 21 (<40) U/L Alkaline Phosphatase 101 (39-117) U/L Total Protein 6.9 (5.9-8.4) gm/dL Albumin 3.8 3.7 (3.2-5.2) gm/dL All other labs normal. Imaging CT scan - abdomen: report reviewed and image reviewed CT scan - pelvis: report reviewed and image reviewed A/P Assessment and plan (1) Urine retention: Status: Acute (2) ANAMARIA (acute kidney injury): Status: Acute Plan Caro is a 76-year-old woman who presented to the emergency department yesterday with an acute kidney injury secondary to urinary retention of unknown duration. In May her serum creatinine was within normal limits. Yesterday was 2.4. Panda catheter was placed in almost 2 L of urine were drained. She has been experiencing an increase in urinary incontinence and fatigue and lethargy. She feels well this morning. She is exhibiting some signs of post obstructive diuresis. She is making copious amounts of urine. The urine in her bag this morning is clear and yellow. It is likely that she has a nonfunctioning, atonic bladder possibly secondary to a neurogenic bladder or long-term retention. Obstruction from mass is a less likely diagnosis. On CT it did not appear that she had a significant cystocele. We discussed leaving the Panda catheter in place. When she is stable for discharge she will go home with the Panda catheter in place. We will then see her in the office for Panda removal, cystoscopy, pelvic examination and teaching of clean intermittent catheterization. Time Spent With Patient Time: Total time spent is greater than 50% in coordination of care (as documented) at patient's floor/unit and/or counseling patient:
[2022-10-15] MEDS: HEPARIN 5,000 UNIT/ML VIAL SQ SCH (20:48)
[2022-10-15] MEDS: SENNOSIDES 1 TABLET PO SCH (20:50)
[2022-10-15] MEDS: 0.9 % SODIUM CHLORIDE 10 ML SYRINGE IV SCH (20:50)
[2022-10-16 06:50] LABS: ALT/SGPT 22 U/L (<40); AST/SGOT 27 U/L (<32); Albumin 3.6 gm/dL (3.2-5.2); Albumin/Globulin Ratio 1.2 (1.0-2.3); Alkaline Phosphatase 99 U/L (39-117); Bilirubin,Direct < 0.2 mg/dL (0-0.3); Bilirubin,Total 0.3 mg/dL (0.1-1.0); Blood Urea Nitrogen 28 mg/dL (8-23); Calcium 9.1 mg/dL (8.6-10.4); Carbon Dioxide 18 mmol/L (22-30); Chloride 107 mmol/L (96-108); Globulin 3.1 gm/dL (2.2-3.7); Glomerular Filtration Rate 19; Glucose 118 mg/dL (70-105); Lactate Dehydrogenase 284 U/L (135-225); Phosphorous 4.2 mg/dL (2.5-4.5); Triglycerides 69 mg/dL (<150); Uric Acid 5.1 mg/dL (2.5-8.0)
[2022-10-16] MEDS: 0.9 % SODIUM CHLORIDE 10 ML SYRINGE IV SCH ×3 (07:42→21:16)
[2022-10-16] MEDS: 0.45 % SODIUM CHLORIDE 1,000 ML IV SCH ×2 (07:42→17:48)
[2022-10-16] MEDS: HEPARIN 5,000 UNIT/ML VIAL SQ SCH ×2 (08:49→21:21)
--- NOTE | 2022-10-16 08:52 | EKG ---
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
--- NOTE | 2022-10-16 08:58 | XRay Report ---
HISTORY: Chest pain, hypertension FINDINGS: The lungs are clear. The heart, mediastinum, jaimie and pleura are normal. IMPRESSION: Normal chest. Interpreted and Authenticated by: Mauro Beck 10/16/22
--- NOTE | 2022-10-16 09:29 | Internal Med Progress Note ---
SUBJECTIVE Subjective Patient information: Note initiated : 10/16/22 at 9:24 am Service Date, if different from initiated Date: [] Patient: Caro Jason 76 y/o F admitted on 10/15/22 for High blood pressure. Chief Complaint: [] Interval history: Ms. Jason is a 76 year old Female with a history of coronary artery disease diagnosed in 2020 when the patient had an NSTEMI. At that time, the patient had an angiogram which showed nonobstructing atherosclerosis of 40 to 50% and 30 to 40% in the proximal LAD with an associated IFR of 0.94. The patient was not deemed to be a candidate for PCI by interventional cardiology, cardiology recom mended medical management and the patient was started on aspirin, a beta-renay and atorvastatin. The patient now presents to the emergency department for progressively worsening weakness and what she describes as "heaviness". The patient does describe exertional chest discomfort however says that has been present since 2020 and stable. The patient says that she has been having difficulty performing activities of daily living, she describes having to rest multiple times while doing house chores. The patient went to her dentist where she was found to have a right lower molar infection, she says it is an abscess that her dentist feels will require a root canal. While at her dentist, the patient did have her blood pressure checked and it was markedly elevated. The patient then went home and purchased a blood pressure monitor and her blood pressure continued to be elevated at home. At that time she did decide to come to the emergency department for further evaluation. In the emergency department, the patient was noted to have elevated blood pressure heart rate in the 50s to 60s and otherwise stable vitals. EKG did not show any ischemic changes, troponin was normal x2. A renal function panel showed a creatinine level of 2.5, significantly higher than the patient's last creatinine level of 1.0. Hospital medicine was asked to admit the patient for further evaluation. Upon [id number] ultrasound examination, patient was noted to have a distended urine filled bladder and bilateral moderate to severe hydronephrosis. 10/16 CT abdomen pelvis without contrast showed a distended bladder consistent with bladder outlet obstruction of uncertain etiology causing severe bilateral hydronephrosis. A Panda catheter was placed. Urology consulted for further evaluation. Renal function this morning modestly improved, the patient is having a significant amount of diuresis consistent with postobstructive diuresis. The patient started on IV fluid. Physical exam Head: Atraumatic, normal inspection. Eyes: normal appearance, no scleral icterus. Neck: full ROM Respiratory: no respiratory distress. Cardiovascular: normal rate and rhythm, S1, S2. GI/Abdominal: soft, nontender, no guarding. : Indwelling Panda catheter. Extremities: full range of motion, nontender. Neurological: CN II-XII intact, intact motor, intact sensation. Psychiatric: normal mood. Skin: warm, normal color Constitutional Vitals: Vital Signs Temp Pulse Resp BP Pulse Ox O2 Del Method 97.7 F 67 16 137/72 100 Room Air 10/16/22 07:35 10/16/22 07:35 10/16/22 07:35 10/16/22 07:35 10/16/22 07:35 10/16/22 07:35 Period Temp Pulse Resp BP Sys/Guajardo Pulse Ox O2 Del Method O2 Flow Rate Last 24 Hr 96.3 F-97.9 F 50-73 16-20 137-199/64-93 94-100 Room Air-Room Air Intake and Output 10/15/22 10/16/22 10/16/22 19:59 03:59 11:59 Intake Total 1000 800 Output Total 3800 1950 1050 Balance -2800 -1150 -1050 Weight 83.631 kg 86.364 kg Intake & Output: Intake & Output 10/15/22 10/16/22 10/16/22 19:59 03:59 11:59 Intake Total 1000 800 Output Total 3800 1950 1050 Balance -2800 -1150 -1050 Weight 83.631 kg 86.364 kg Intake: IV 1000 Sodium Chloride 0.9% 1,000 ml @ 1000 Wide Open IV [facility] Rx#: [id number] Oral 800 Output: Urine Catheter Amount 3600 1950 1050 Uretheral (Panda) 3600 Void Amount 200 Other: Meal Dinner Percent of Meal Consumed 100% Feeding Ability Independent Urine Appearance Clear Clear Small Blood Clots Uretheral (Panda) Clear Clear Urine Color Yellow [address] Pale Uretheral (Panda) Pale Pale Urine Odor Normal Normal Uretheral (Panda) Normal Stool Size Moderate Stool Color Brown Stool Consistency Soft Formed OBJ DATA Labs 10/16/22 05:00 Labs: Abnormal Lab Results 10/16/22 10/15/22 10/15/22 05:00 15:56 14:24 POC Hct Carbon Dioxide 18 L 18 L POC BUN BUN 28 H 28 H Creatinine 2.4 H 2.5 H POC Creatinine Glucose 118 H Ferritin 456.7 H Lactate Dehydrogenase 284 H 251 H NT-Pro-B Natriuret Pep Urine Mucus Few A 10/15/22 10/15/22 10/15/22 14:23 11:31 11:07 POC Hct 30.0 L Carbon Dioxide POC BUN 30 H BUN 30 H Creatinine 2.5 H POC Creatinine 3.1 H Glucose Ferritin Lactate Dehydrogenase NT-Pro-B Natriuret Pep 691.9 H Urine Mucus Meds: Medications Acetaminophen (Acetaminophen 325 Mg Tablet) 650 mg PO Q6HP PRN; Protocol PRN Reason: Per Pain Protocol/Fever > 101 Heparin Sodium (Porcine) (Heparin 5,000 Unit/Ml Vial) 5,000 unit SQ Q12 [facility] Last Admin: 10/16/22 08:49 Dose: 5,000 unit Hydralazine HCl (Hydralazine 20 Mg/Ml Vial) 20 mg IV Q4-6HP PRN PRN Reason: Hypertension Sodium Chloride (Sodium Chloride 0.45%) 1,000 mls @ 100 mls/hr IV .Q10H [facility] Last Admin: 10/16/22 07:42 Dose: 100 mls/hr Ondansetron HCl (Ondansetron 4 Mg/2 Ml Vial) 4 mg IV Q6HP PRN PRN Reason: Nausea And Vomiting Senna (Sennosides 1 Tablet) 2 tab PO HS [facility] Last Admin: 10/15/22 20:50 Dose: Not Given Sodium Chloride (0.9 % Sodium Chloride 10 Ml Syringe) 10 ml IV Q8 [facility] Last Admin: 10/16/22 07:42 Dose: 10 ml A/P Narrative A/P Narrative: Assessment: 76 year old female with a history of nonobstructive CAD, stable angina, hypertension admitted for renal failure secondary to obstructive nephropathy of uncertain cause. #Renal failure secondary to obstructive nephropathy #Postobstructive diuresis #Non-anion gap metabolic acidosis #Resolved hypertensive urgency #Generalized weakness and fatigue #History of CAD with stable angina Plan -Monitor urine output, continue Panda catheter. -IV half NS titrated to 75% urine output for now. -Follow renal function and electrolytes closely until postobstructive diuresis resolves. -Urology consulted. -Continue home aspirin, atorvastatin, metoprolol. -Regular diet. -Follow-up pending echocardiogram. -Consider nephrology consult depending on renal function trend. -DVT ppx: Heparin SQ. -CODE STATUS: Parts Representative Spent With Patient Time: Total time spent is greater than 50% in coordination of care (as documented) at patient's floor/unit and/or counseling patient: QUALITY VTE Deep Vein Thrombosis/Pulmonary Embolism Present on Admission: No
[2022-10-16 14:48] LABS: Albumin 3.5 gm/dL (3.2-5.2); Blood Urea Nitrogen 27 mg/dL (8-23); Calcium 8.5 mg/dL (8.6-10.4); Carbon Dioxide 22 mmol/L (22-30); Chloride 106 mmol/L (96-108); Glomerular Filtration Rate 22; Glucose 107 mg/dL (70-105)
[2022-10-16] MEDS: SENNOSIDES 1 TABLET PO SCH (21:21)
[2022-10-17] MEDS: 0.45 % SODIUM CHLORIDE 1,000 ML IV SCH ×3 (03:52→16:14)
[2022-10-17] MEDS: 0.9 % SODIUM CHLORIDE 10 ML SYRINGE IV SCH ×3 (04:26→20:42)
[2022-10-17 06:52] LABS: ALT/SGPT 21 U/L (<40); AST/SGOT 24 U/L (<32); Albumin 3.3 gm/dL (3.2-5.2); Albumin/Globulin Ratio 1.1 (1.0-2.3); Alkaline Phosphatase 96 U/L (39-117); Bilirubin,Direct < 0.2 mg/dL (0-0.3); Bilirubin,Total 0.2 mg/dL (0.1-1.0); Blood Urea Nitrogen 25 mg/dL (8-23); Calcium 8.5 mg/dL (8.6-10.4); Carbon Dioxide 18 mmol/L (22-30); Chloride 108 mmol/L (96-108); Glomerular Filtration Rate 23; Glucose 126 mg/dL (70-105); Lactate Dehydrogenase 209 U/L (135-225); Phosphorous 3.4 mg/dL (2.5-4.5); Triglycerides 64 mg/dL (<150); Uric Acid 4.2 mg/dL (2.5-8.0)
[2022-10-17] MEDS: HEPARIN 5,000 UNIT/ML VIAL SQ SCH ×2 (08:57→20:40)
[2022-10-17] MEDS: ASPIRIN 81 MG TAB.CHEW PO SCH (08:57)
[2022-10-17] MEDS: ATORVASTATIN 40 MG TABLET PO SCH (08:57)
[2022-10-17] MEDS: METOPROLOL SUCCINATE 25 MG TAB.XL.24H PO SCH (08:58)
--- NOTE | 2022-10-17 11:41 | Internal Med Progress Note ---
SUBJECTIVE Subjective Patient information: Note initiated : 10/17/22 at 11:39 am Service Date, if different from initiated Date: [] Patient: Caro Jason 76 y/o F admitted on 10/15/22 for High blood pressure. Chief Complaint: [] Interval history: Ms. Jason is a 76 year old Female with a history of coronary artery disease diagnosed in 2020 when the patient had an NSTEMI. At that time, the patient had an angiogram which showed nonobstructing atherosclerosis of 40 to 50% and 30 to 40% in the proximal LAD with an associated IFR of 0.94. The patient was not deemed to be a candidate for PCI by interventional cardiology, cardiology cornelia mmended medical management and the patient was started on aspirin, a beta- renay and atorvastatin. The patient now presents to the emergency department for progressively worsening weakness and what she describes as "heaviness". The patient does describe exertional chest discomfort however says that has been present since 2020 and stable. The patient says that she has been having difficulty performing activities of daily living, she describes having to rest multiple times while doing house chores. The patient went to her dentist where she was found to have a right lower molar infection, she says it is an abscess that her dentist feels will require a root canal. While at her dentist, the patient did have her blood pressure checked and it was markedly elevated. The patient then went home and purchased a blood pressure monitor and her blood pressure continued to be elevated at home. At that time she did decide to come to the emergency department for further evaluation. In the emergency department, the patient was noted to have elevated blood pressure heart rate in the 50s to 60s and otherwise stable vitals. EKG did not show any ischemic changes, troponin was normal x2. A renal function panel showed a creatinine level of 2.5, significantly higher than the patient's last creatinine level of 1.0. Hospital medicine was asked to admit the patient for further evaluation. Upon [id number] ultrasound examination, patient was noted to have a distended urine filled bladder and bilateral moderate to severe hydronephrosis. 10/16 CT abdomen pelvis without contrast showed a distended bladder consistent with bladder outlet obstruction of uncertain etiology causing severe bilateral hydronephrosis. A Panda catheter was placed. Urology consulted for further evaluation. Renal function this morning modestly improved, the patient is having a significant amount of diuresis consistent with postobstructive diuresis. The patient started on IV fluid. 8 Blood pressure elevated overnight, otherwise vitals have been stable. Renal function improving. Electrolytes stable this morning. Postobstructive diuresis has decreased, reduced IV fluid rate. Started Norvasc for elevated blood pressures. Canceled transthoracic echocardiogram as the patient's admission symptoms are improving now that the bladder outlet obstruction has been addressed. Physical exam Head: Atraumatic, normal inspection. Eyes: normal appearance, no scleral icterus. Neck: full ROM Respiratory: no respiratory distress. Cardiovascular: normal rate and rhythm, S1, S2. GI/Abdominal: soft, nontender, no guarding. : Indwelling Panda catheter. Extremities: full range of motion, nontender. Neurological: CN II-XII intact, intact motor, intact sensation. Psychiatric: normal mood. Skin: warm, normal color Constitutional Vitals: Vital Signs Temp Pulse Resp BP Pulse Ox O2 Del Method 97.7 F 71 16 170/72 97 Room Air 10/17/22 07:38 10/17/22 07:38 10/17/22 07:38 10/17/22 07:38 10/17/22 07:38 10/17/22 07:38 Period Temp Pulse Resp BP Sys/Guajardo Pulse Ox O2 Del Method O2 Flow Rate Last 24 Hr 97.5 F-98.1 F 60-74 16-18 142-174/63-72 95-97 Room Air-Room Air Intake and Output 10/16/22 10/17/22 10/17/22 19:59 03:59 11:59 Intake Total 1540 1000 240 Output Total 800 1850 1175 Balance 740 -850 -935 Weight 83.518 kg Intake & Output: Intake & Output 10/16/22 10/17/22 10/17/22 19:59 03:59 11:59 Intake Total 1540 1000 240 Output Total 800 1850 1175 Balance 740 -850 -935 Weight 83.518 kg Intake: IV 1000 1000 Sodium Chloride 0.45% 1,000 ml 1000 1000 @ 100 mls/hr IV .Q10H [facility] Rx#: [id number] Oral 240 240 GI Tube Flush 300 Output: Urine Catheter Amount 800 1850 1175 Other: Meal Dinner Breakfast Percent of Meal Consumed 100 100% Feeding Ability Independent Independent Urine Appearance Clear Clear Clear Uretheral (Panda) Clear Clear Urine Color Yellow Pale Yellow Pale Uretheral (Panda) Yellow Yellow Pale Urine Odor Normal Normal Stool Size Large Stool Color Brown Yellow Stool Consistency Soft Formed # Bowel Movements 1 OBJ DATA Labs 10/17/22 05:19 Labs: Abnormal Lab Results 10/17/22 10/16/22 10/16/22 05:19 13:56 05:00 POC Hct Carbon Dioxide 18 L 18 L POC BUN BUN 25 H 27 H 28 H Creatinine 2.0 H 2.1 H 2.4 H POC Creatinine Glucose 126 H 107 H 118 H Calcium 8.5 L 8.5 L Ferritin Lactate Dehydrogenase 284 H NT-Pro-B Natriuret Pep Urine Mucus 10/15/22 10/15/22 10/15/22 15:56 14:24 14:23 POC Hct Carbon Dioxide 18 L POC BUN BUN 28 H Creatinine 2.5 H POC Creatinine Glucose Calcium Ferritin 456.7 H Lactate Dehydrogenase 251 H NT-Pro-B Natriuret Pep 691.9 H Urine Mucus Few A 10/15/22 10/15/22 11:31 11:07 POC Hct 30.0 L Carbon Dioxide POC BUN 30 H BUN 30 H Creatinine 2.5 H POC Creatinine 3.1 H Glucose Calcium Ferritin Lactate Dehydrogenase NT-Pro-B Natriuret Pep Urine Mucus Meds: Medications Acetaminophen (Acetaminophen 325 Mg Tablet) 650 mg PO Q6HP PRN; Protocol PRN Reason: Per Pain Protocol/Fever > 101 Aspirin (Aspirin 81 Mg Tab.Chew) 81 mg PO DAILY [facility] Last Admin: 10/17/22 08:57 Dose: 81 mg Atorvastatin Calcium (Atorvastatin 40 Mg Tablet) 40 mg PO QDAY [facility] Last Admin: 10/17/22 08:57 Dose: 40 mg Heparin Sodium (Porcine) (Heparin 5,000 Unit/Ml Vial) 5,000 unit SQ Q12 [facility] Last Admin: 10/17/22 08:57 Dose: 5,000 unit Hydralazine HCl (Hydralazine 20 Mg/Ml Vial) 20 mg IV Q4-6HP PRN PRN Reason: Hypertension Sodium Chloride (Sodium Chloride 0.45%) 1,000 mls @ 50 mls/hr IV .Q20H [facility] Last Admin: 10/17/22 08:58 Dose: 50 mls/hr Metoprolol Succinate (Metoprolol Succinate 25 Mg Tab.Xl.24h) 25 mg PO QDAY [facility] Last Admin: 10/17/22 08:58 Dose: 25 mg Ondansetron HCl (Ondansetron 4 Mg/2 Ml Vial) 4 mg IV Q6HP PRN PRN Reason: Nausea And Vomiting Senna (Sennosides 1 Tablet) 2 tab PO HS [facility] Last Admin: 10/16/22 21:21 Dose: 2 tab Sodium Chloride (0.9 % Sodium Chloride 10 Ml Syringe) 10 ml IV Q8 [facility] Last Admin: 10/17/22 04:26 Dose: Not Given A/P Narrative A/P Narrative: Assessment: 76 year old female with a history of nonobstructive CAD, stable angina, hypertension admitted for renal failure secondary to obstructive nephropathy of uncertain cause. #Renal failure secondary to obstructive nephropathy #Postobstructive diuresis #Non-anion gap metabolic acidosis #Hypertension #Improved generalized weakness and fatigue #History of CAD with stable angina Plan -Monitor urine output, continue Panda catheter until urology post hospital follow-up. -IV half NS reduced to 50 mL/h. -Follow renal function and electrolytes closely until postobstructive diuresis resolves. -Start Norvasc 5 mg daily. -Continue home aspirin, atorvastatin, metoprolol. -Regular diet. -Urology was consulted, follow-up in clinic. -DVT ppx: Heparin SQ. -CODE STATUS: Full -Disposition: Currently inpatient MedSurg, follow-up with urology and PCP after discharge. Time Spent With Patient Time: Total time spent is greater than 50% in coordination of care (as documented) at patient's floor/unit and/or counseling patient: QUALITY VTE Deep Vein Thrombosis/Pulmonary Embolism Present on Admission: No
[2022-10-17] MEDS: amLODIPine 5 MG TABLET PO SCH (12:01)
[2022-10-17 17:04] LABS: Blood Urea Nitrogen 21 mg/dL (8-23); Calcium 8.8 mg/dL (8.6-10.4); Carbon Dioxide 21 mmol/L (22-30); Chloride 105 mmol/L (96-108); Glomerular Filtration Rate 28; Glucose 88 mg/dL (70-105)
[2022-10-17] MEDS: SENNOSIDES 1 TABLET PO SCH (20:40)
[2022-10-18] MEDS: 0.9 % SODIUM CHLORIDE 10 ML SYRINGE IV SCH (06:37)
[2022-10-18 06:50] LABS: ALT/SGPT 22 U/L (<40); AST/SGOT 26 U/L (<32); Albumin 3.6 gm/dL (3.2-5.2); Albumin/Globulin Ratio 1.2 (1.0-2.3); Alkaline Phosphatase 102 U/L (39-117); Bilirubin,Direct < 0.2 mg/dL (0-0.3); Bilirubin,Total 0.3 mg/dL (0.1-1.0); Blood Urea Nitrogen 21 mg/dL (8-23); Calcium 8.9 mg/dL (8.6-10.4); Carbon Dioxide 21 mmol/L (22-30); Chloride 108 mmol/L (96-108); Glomerular Filtration Rate 27; Glucose 103 mg/dL (70-105); Lactate Dehydrogenase 203 U/L (135-225); Phosphorous 3.7 mg/dL (2.5-4.5); Triglycerides 55 mg/dL (<150); Uric Acid 4.2 mg/dL (2.5-8.0)
[2022-10-18] MEDS: 0.45 % SODIUM CHLORIDE 1,000 ML IV SCH (06:50)
[2022-10-18] MEDS: HEPARIN 5,000 UNIT/ML VIAL SQ SCH (08:40)
[2022-10-18] MEDS: ASPIRIN 81 MG TAB.CHEW PO SCH (08:40)
[2022-10-18] MEDS: ATORVASTATIN 40 MG TABLET PO SCH (08:40)
[2022-10-18] MEDS: amLODIPine 5 MG TABLET PO SCH (08:40)
[2022-10-18] MEDS: METOPROLOL SUCCINATE 25 MG TAB.XL.24H PO SCH (08:40)
--- NOTE | 2022-10-18 09:12 | Discharge Summary ---
Discharge Provider Provider IMPORTANT FOLLOW-UP INFORMATION FOR PCP: Patient information: Note initiated : 10/18/22 at 9:09 am Service Date, if different from initiated Date: [] Patient: Caro Jason 76 y/o F admitted on 10/15/22 for High blood pressure. Chief Complaint: [] Date of admission: 10/15/22 16:07 Discharge date: 10/18/22 Primary care physician: Cb Pollack DO Consults: 10/15/22 Consult to Physician [CONS] Stat Comment: Consulting Provider: Casey Avalos Reason For Exam: Physician to Consult 10/15/22 17:19 Consult to Physician [CONS] Routine Comment: Bladder outlet obstruction. Consulting Provider: Laureano Pena Reason For Exam: Physician to Consult COURSE Hospital Course Hospital course: Ms. Jason is a 76 year old Female with a history of coronary artery disease diagnosed in 2020 when the patient had an NSTEMI. At that time, the patient had an angiogram which showed nonobstructing atherosclerosis of 40 to 50% and 30 to 40% in the proximal LAD with an associated IFR of 0.94. The patient was not deemed to be a candidate for PCI by interventional cardiology, cardiology recommended medical management and the patient was started on aspirin, a beta- renay and atorvastatin. The patient now presents to the emergency department for progressively worsening weakness and what she describes as "heaviness". The patient does describe exertional chest discomfort however says that has been present since 2020 and stable. The patient says that she has been having difficulty performing activities of daily living, she describes having to rest multiple times while doing house chores. The patient went to her dentist where she was found to have a right lower molar infection, she says it is an abscess that her dentist feels will require a root canal. While at her dentist, the patient did have her blood pressure checked and it was markedly elevated. The patient then went home and purchased a blood pressure monitor and her blood p ressure continued to be elevated at home. At that time she did decide to come to the emergency department for further evaluation. In the emergency department, the patient was noted to have elevated blood pressure heart rate in the 50s to 60s and otherwise stable vitals. EKG did not show any ischemic changes, troponin was normal x2. A renal function panel showed a creatinine level of 2.5, significantly higher than the patient's last creatinine level of 1.0. Hospital medicine was asked to admit the patient for further evaluation. Upon [id number] ultrasound examination, patient was noted to have a distended urine filled bladder and bilateral moderate to severe hydronephrosis. 10/16 CT abdomen pelvis without contrast showed a distended bladder consistent with bladder outlet obstruction of uncertain etiology causing severe bilateral hydronephrosis. A Panda catheter was placed. Urology consulted for further evaluation. Renal function this morning modestly improved, the patient is having a significant amount of diuresis consistent with postobstructive diuresis. The patient started on IV fluid. 10/17 Blood pressure elevated overnight, otherwise vitals have been stable. Renal fu nction improving. Electrolytes stable this morning. Postobstructive diuresis has decreased, reduced IV fluid rate. Started Norvasc for elevated blood pressures. Canceled transthoracic echocardiogram as the patient's admission symptoms are improving now that the bladder outlet obstruction has been addressed. 10/18 Blood pressure moderately elevated overnight, vitals otherwise stable. Renal function appears to have plateaued. Patient feels much better than when she was admitted. Discharged to home with PCP follow-up and urology follow-up. Patient is discharged with a Panda catheter until she follows up with urology where she will receive instructions regarding straight catheterization. Patient discharged with new prescription for Norvasc 5 mg daily. Her prior home medications were continued as before this hospitalization. Follow-up renal function after discharge. If the patient's renal function does not recover back to her previous baseline I recommend a nephrology referral. Physical exam Head: Atraumatic, normal inspection. Eyes: normal appearance, no scleral icterus. Neck: full ROM Respiratory: no respiratory distress. Cardiovascular: normal rate and rhythm, S1, S2. GI/Abdominal: soft, nontender, no guarding. : Indwelling Panda catheter. Extremities: full range of motion, nontender. Neurological: CN II-XII intact, intact motor, intact sensation. Psychiatric: normal mood. Skin: warm, normal color Discharge diagnosis: Acute kidney injury secondary to obstructive nephropathy Secondary discharge diagnosis: Bladder outlet obstruction Time Spent with Patient Time attestation: Total time spent providing and/or coordinating discharge services: Time spent: Less than 30 minutes EXAM Constitutional Vitals: Temp Pulse Resp BP Pulse Ox O2 Del Method 97.3 F 58 L 17 155/73 96 Room Air 10/18/22 07:36 10/18/22 07:36 10/18/22 07:36 10/18/22 07:36 10/18/22 07:36 10/18/22 07:36 Discharge Data Data Completed and Pending Labs on day of discharge: Labs from last 24 hours 10/18/22 10/17/22 05:19 16:10 Sodium 139 136 Potassium 4.4 4.2 Chloride 108 105 Carbon Dioxide 21 L 21 L Anion Gap 10.0 10.0 BUN 21 21 Creatinine 1.8 H 1.7 H GFR Calculation 27 28 Glucose 103 88 Uric Acid 4.2 Calcium 8.9 8.8 Phosphorus 3.7 Magnesium 1.7 1.8 Total Bilirubin 0.3 Direct Bilirubin < 0.2 GGT 20 AST 26 ALT 22 Alkaline Phosphatase 102 Lactate Dehydrogenase 203 Total Protein 6.6 Albumin 3.6 Globulin 3.0 Albumin/Globulin Ratio 1.2 Triglycerides 55 Discharge Plan Patient/Caregiver Discharge Instructions Activity: increase activity as tolerated Diet: Regular Diet and Low Sodium (2gm) Prescriptions: New amlodipine 5 mg Tablet 5 mg PO DAILY Qty: 60 4RF Continued metoprolol succinate 25 mg tablet extended release 24 hr 25 mg PO QDAY Qty: 90 3RF atorvastatin 40 mg tablet 40 mg PO QDAY Qty: 90 3RF aspirin [Adult Low Dose Aspirin] 81 mg tablet,delayed release (DR/EC) 81 mg PO QDAY Follow Up Plan Follow up with: Cb Pollack DO [Primary Care Provider] - Laureano Pena MD [Physician] - Patient Disposition: Home, Self-Care Prognosis: Good Overall status at discharge: patient is progressing back to baseline Discharge Orders: Discharge Order (Routine); Ordered 10/18/22 Ordered By: Casey Avalos QUALITY VTE Deep Vein Thrombosis/Pulmonary Embolism Present on Admission: No
== END 2022-10-18 14:04 | disposition home or self-care (01) | DRG 699 ==
LOC: ED 10:40 → MEDSUR 16:07
PROVIDERS: ADMIT Internal Medicine; ATTEND Internal Medicine